=== PATIENT | female | born 1940 | race Caucasian/White ===

== ENCOUNTER 2017-07-02 13:47 | Emergency (ER) | payer OTHER ==
[~2017-07-02] VITALS: Ht 170.2 cm; Wt 57.1 kg
[2017-07-02 13:49] VITALS: BP 146/81; PULSE 90; RESP 18; TEMP 98; O2SAT 98
[2017-07-02] MEDS ORDERED: SODIUM CHLOR 0.9% 1000 ML INJ 1,000 ML IV SCH (14:03)
--- NOTE | 2017-07-02 14:03 | PD ---
HPI Chief Complaint: GI Complaint Time Seen by Provider: 13:59 Travel History International Travel<30 days: No Contact w/Intl Traveler<30days: No Traveled to known affect area: No History of Present Illness HPI PATIENT C/O ABD PAIN, SINCE ABOUT 6 DAYS AGO, FOUND TO HAVE UTI AT URGENT CARE AND IS ON BACTRIM FOR THAT. EARLIER DURING THAT WEEK SHE WAS ALSO FINISHING OFF 5 DAYS OF PREDNISONE WELL. PATIENT RETURNS TODAY WITH CONTINUED CRAMPY ABD PAIN, DIFFUSE, NONRAD, 10, ASSOC WITH N/V BUT NOT DIARRHEA. PATIENT STATES SHE HAS NOT BEEN ABLE TO EAT ANYTHING IN PAST FEW DAYS DUE TO N/V EPISODES...ADDITIONALLY NO ABD SURGERY EXCEPT FOR HYSTERECTOMY PFSH Past Medical History ?: Not Social History Tobacco Use: No Allergies-Medications (Allergen,Severity, Reaction): Coded Allergies: No Known Allergies (Verified Allergy, Unknown, 07/02/17) Reported Meds & Prescriptions Reported Meds & Active Scripts Active Reported Multiple Vitamin 1 Tab 1 Tab PO DAILY Cranberry Urinary Comfort (Vitamins C & E) 1 Cap 1 Cap PO DAILY Osteo Bi-Flex Caplet (Glucosamine/D3/Boswellia Catherine) 1,500 Mg-400 Unit-100 Mg Tablet 1 Tab PO DAILY Calcium 500 +D (Calcium Carbonate-Cholecalciferol) 500-400 Mg-Unit Tab 2 Tab PO BID Aspirin Low Dose (Aspirin) 81 Mg Chew 81 Mg CHEW DAILY Simvastatin 40 Mg Tab 40 Mg PO HS Estradiol 0.5 Mg Tab 0.5 Mg PO DAILY Levothyroxine (Levothyroxine Sodium) 75 Mcg Tab 75 Mcg PO DAILY Review of Systems General / Constitutional: No: Fever Eyes: No: Visual changes HENT: No: Headaches Cardiovascular: No: Chest Pain or Discomfort Respiratory: No: Shortness of Breath Gastrointestinal: Positive: Nausea, Vomiting, Abdominal Pain Genitourinary: No: Dysuria Musculoskeletal: No: Pain Skin: No Rash Neurologic: No: Weakness Psychiatric: No: Depression Endocrine: No: Polydipsia Hematologic/Lymphatic: No: Easy Bruising Physical Exam Narrative GENERAL: SKIN: Warm and dry. HEAD: Atraumatic. Normocephalic. EYES: Pupils equal and round. No scleral icterus. No injection or drainage. ENT: No nasal bleeding or discharge. Mucous membranes pink and moist. NECK: Trachea midline. No JVD. CARDIOVASCULAR: Regular rate and rhythm. RESPIRATORY: No accessory muscle use. Clear to auscultation. Breath sounds equal bilaterally. GASTROINTESTINAL: Abdomen soft, non-tender, nondistended. MUSCULOSKELETAL: Extremities without clubbing, cyanosis, or edema. No obvious deformities. NEUROLOGICAL: Awake and alert. No obvious cranial nerve deficits. Motor grossly within normal limits. Five out of 5 muscle strength in the arms and legs. Normal speech. PSYCHIATRIC: Appropriate mood and affect; insight and judgment normal. Data Data Last Documented VS Vital Signs Date Time Temp Pulse Resp B/P (MAP) Pulse Ox O2 Delivery O2 Flow Rate FiO2 07/02/17 15:26 75 16 140/53 (82) 96 Room Air 07/02/17 13:49 98.0 Orders Orders Complete Blood Count With Diff (07/02/17 14:03) Comprehensive Metabolic Panel (07/02/17 14:03) Lipase (07/02/17 14:03) Urinalysis - C+S If Indicated (07/02/17 14:03) Ct Abd/Pel W/O Iv Contrast (07/02/17 14:03) Iv Access Insert/Monitor (07/02/17 14:03) Ecg Monitoring (07/02/17 14:03) Oximetry (07/02/17 14:03) NPO (07/02/17 14:03) Sodium Chlor 0.9% 1000 Ml Inj (Ns 1000 M (07/02/17 14:03) Labs Laboratory Tests Test 07/02/17 14:00 07/02/17 14:10 White Blood Count 10.6 TH/MM3 Red Blood Count 4.87 MIL/MM3 Hemoglobin 13.6 GM/DL Hematocrit 41.8 % Mean Corpuscular Volume 85.8 FL Mean Corpuscular Hemoglobin 28.0 PG Mean Corpuscular Hemoglobin Concent 32.6 % Red Cell Distribution Width 13.8 % Platelet Count 268 TH/MM3 Mean Platelet Volume 9.4 FL Neutrophils (%) (Auto) 82.4 % Lymphocytes (%) (Auto) 9.8 % Monocytes (%) (Auto) 6.4 % Eosinophils (%) (Auto) 0.7 % Basophils (%) (Auto) 0.7 % Neutrophils # (Auto) 8.7 TH/MM3 Lymphocytes # (Auto) 1.0 TH/MM3 Monocytes # (Auto) 0.7 TH/MM3 Eosinophils # (Auto) 0.1 TH/MM3 Basophils # (Auto) 0.1 TH/MM3 CBC Comment DIFF FINAL Differential Comment Blood Urea Nitrogen 13 MG/DL Creatinine 1.60 MG/DL Random Glucose 128 MG/DL Total Protein 7.9 GM/DL Albumin 4.2 GM/DL Calcium Level 9.0 MG/DL Alkaline Phosphatase 70 U/L Aspartate Amino Transf (AST/SGOT) 23 U/L Alanine Aminotransferase (ALT/SGPT) 26 U/L Total Bilirubin 0.6 MG/DL Sodium Level 132 MEQ/L Potassium Level 4.2 MEQ/L Chloride Level 98 MEQ/L Carbon Dioxide Level 23.9 MEQ/L Anion Gap 10 MEQ/L Estimat Glomerular Filtration Rate 31 ML/MIN Lipase 82 U/L Urine Collection Type CLEAN CATCH Urine Color YELLOW Urine Turbidity SLIGHTY CLOUDY Urine pH 7.0 Urine Specific Joiner 1.023 Urine Protein TRACE mg/dL Urine Glucose (UA) NEG mg/dL Urine Ketones 40 mg/dL Urine Occult Blood NEG Urine Nitrite NEG Urine Bilirubin NEG Urine Leukocyte Esterase SMALL Urine WBC 3-5 /hpf Urine Squamous Epithelial Cells 0-5 /hpf Urine Amorphous Sediment MOD Microscopic Urinalysis Comment CULT NOT INDICATED MDM Medical Decision Making Medical Screen Exam Complete: Yes Emergency Medical Condition: Yes Medical Record Reviewed: Yes Differential Diagnosis SIGMOID DIVERTIC V APPY V COLITIS Narrative Course CT NEG FOR DIVERTICULITIS, COLITIS OR APPY....PATIENT WILL BE D/C POSSIBLE GASTRITIS/DYSPEPTIC SYNDROME CAUSING SYMPTOMS Diagnosis Primary Impression: ABD PAIN NOS Scripts Ondansetron Odt (Zofran Odt) 4 Mg Tab 4 MG SL Q6HR Y for Nausea/Vomiting, #20 TAB 0 Refills Prov: Alex Perez MD 07/02/17 Tramadol (Ultram) 50 Mg Tab 50 MG PO Q6H Y for PAIN, #12 TAB 0 Refills Prov: Alex Perez MD 07/02/17 Disposition: 01 DISCHARGE HOME Condition: Stable Alex Perez MD Jul 02, 2017 14:03
[2017-07-02 14:16] LABS: AUTOMATED NEUTROPHIL # 8.7 TH/MM3 (1.8-7.7); BASOPHIL # 0.1 TH/MM3 (0-0.2); BASOPHIL % 0.7 % (0.0-2.0); EOSINOPHIL # 0.1 TH/MM3 (0-0.4); EOSINOPHIL % 0.7 % (0.0-4.0); HEMATOCRIT 41.8 % (35.0-46.0); HEMO FLAGS DIFF FINAL; LYMPH % 9.8 % (9.0-44.0); MEAN CELL VOLUME 85.8 FL (80.0-100.0); MEAN CORPUSCULAR HGB CONC 32.6 % (32.0-36.0); MONO % 6.4 % (0.0-8.0); NEUT % 82.4 % (16.0-70.0); PLATELET COUNT 268 TH/MM3 (150-450); RED BLOOD COUNT 4.87 MIL/MM3 (4.00-5.30); RED CELL DISTRIBUTION WIDTH 13.8 % (11.6-17.2); WHITE BLOOD COUNT 10.6 TH/MM3 (4.0-11.0)
[2017-07-02 14:22] VITALS: O2SAT 99
[2017-07-02] MEDS ORDERED: MULTTAB67 PO (14:22)
[2017-07-02] MEDS ORDERED: LEVO75TA3 PO (14:22)
[2017-07-02] MEDS ORDERED: BOSW5TAB PO (14:22)
[2017-07-02] MEDS ORDERED: CRANCAP2 PO (14:22)
[2017-07-02] MEDS ORDERED: CALC1TAB12 PO (14:22)
[2017-07-02] MEDS ORDERED: ESTR0.5T PO (14:22)
[2017-07-02] MEDS ORDERED: ASPI81CH6 CHEW (14:22)
[2017-07-02] MEDS ORDERED: SIMV40TA PO (14:22)
[2017-07-02 14:23] VITALS: BP 158/62; PULSE 83; RESP 18; O2SAT 99
[2017-07-02 14:23] LABS: BLOOD, URINE NEG (NEG); GLUCOSE,URINE NEG (NEG); KETONE, URINE 40 mg/dL (NEG); NITRITE,URINE NEG (NEG)
[2017-07-02 14:23] LABS: CHLORIDE 98 MEQ/L (98-107); POTASSIUM 4.2 MEQ/L (3.5-5.1); SODIUM (NA) 132 MEQ/L (136-145)
[2017-07-02 14:27] LABS: ANION GAP 10 MEQ/L (5-15); BICARBONATE 23.9 MEQ/L (21.0-32.0); BLOOD UREA NITROGEN 13 MG/DL (7-18)
[2017-07-02 14:29] LABS: COMMENT (UR) CULT NOT INDICATED; CULTURE IF INDICATED CULT NOT INDICATED; METHOD OF COLLECTION CLEAN CATCH; SQUAMOUS EPITHELIAL CELL URINE 0-5 /hpf (0-5); URINE COLOR YELLOW (YELLW/STRAW)
[2017-07-02 14:30] LABS: ALT (GPT) 26 U/L (10-53); AST (GOT) 23 U/L (15-37); GLOMERULAR FILTRATION RATE 31 ML/MIN (>89)
[2017-07-02 14:31] LABS: TOTAL BILIRUBIN ADULT 0.6 MG/DL (0.2-1.0)
[2017-07-02 14:32] LABS: ALKALINE PHOSPHATASE 70 U/L (45-117)
--- NOTE | 2017-07-02 15:03 | RADRPT ---
EXAM DATE/TIME: 07/02/2017 14:29 [facility] COMPARISON: No previous studies available for comparison. INDICATIONS : Generalized abdominal pain, nausea. Evaluate for renal stone. ORAL CONTRAST: No oral contrast ingested. RADIATION DOSE: 5.96 CTDIvol (mGy) MEDICAL HISTORY : None SURGICAL HISTORY : Hysterectomy. ENCOUNTER: Initial ACUITY: 3 days PAIN SCALE: 5/10 LOCATION: Bilateral abdomen TECHNIQUE: Volumetric scanning of the abdomen and pelvis was performed. Using automated exposure control and ad justment of the mA and/or kV according to patient size, radiation dose was kept as low as reasonably achievable to obtain optimal diagnostic quality images. DICOM format image data is available electro nically for review and comparison. FINDINGS: There is symmetric size the kidneys and no evidence of hydronephrosis. No calcified renal stones. B oth ureters are of normal dimension. In the distal right ureter, there several small punctate calcif ications which may represent multiple a stones, 4 in number.. These are best seen on the coronal orin ge #53. No calcifications along the left ureter. No calcified gallstones. There is focal punctate calcifications in the posterior segment of the righ t lobe of the liver without demonstrable mass on this noncontrast CT scan. The spleen, pancreas, and adrenal glands are intact. The abdominal aorta is normal dimension. No dilated loops of small or large bowel. Multiple diverticula in the sigmoid colon without radiogra phic evidence of diverticulitis. Wide windows for bony detail demonstrate diffuse osteopenia. There are multiple calcifications seen in the lateral right breast. CONCLUSION: 1. There are 4 small calcifications in the low right pelvis which are curvilinear in relation and cou ld represent distal right ureteral stones. No evidence of hydronephrosis. 2. Multiple grouped calcifications in the lateral right breast of uncertain significance. If the pat ient has not had a recent mammogram, recommend such. 3. Several small punctate calcifications in the right lobe of the liver are of uncertain significance . The surrounding hepatic rectum cannot be further evaluated on this noncontrast study. Nayan Kathleen MD on July 02, 2017 at 14:56 Board Certified Radiologist. This report was verified electronically.
[2017-07-02 15:26] VITALS: BP 140/53; PULSE 75; RESP 16; O2SAT 96
[2017-07-02] MEDS ORDERED: ZOFR4TAB3 SL (15:50)
[2017-07-02] MEDS ORDERED: TRAM50 PO (15:50)
[2017-07-02] MEDS ORDERED: ONDANSETRON ODT 4 MG TAB PO ONE (16:00)
[2017-07-02] MEDS ORDERED: traMADol HCL 50 MG TAB PO ONE (16:00)
== END 2017-07-02 16:08 | disposition home or self-care (01) ==
LOC: PHED 13:47
DX: R10.9 Unspecified abdominal pain (principal)
CPT/HCPCS: 74176; 80053; 81001; 83690; 85025; 96360; 99284; J7030